=== PATIENT | male | born 1995 | race American Indian/Alaskan Native ===

== ENCOUNTER 2020-02-19 07:46 | Emergency (ER) | payer SELFPAY ==
--- NOTE | 2020-02-19 08:20 | Emergency Department Report ---
HPI - General Chief Complaint: Alcohol PUI?: No Time Seen by Provider: 02/19/20 08:04 - HPI HPI: Room 2 The patient is a 25-year-old male present with a chief complaint of altered mental status. Per EMS the patient was found lying on the ground in an apartment complex intoxicated by a bystander. The patient responds to tactile stimuli but does not answer questions. ED Past Medical Hx - Past Medical History Previous Medical History?: No - Surgical History Past Surgical History?: No - Family History Family history: no significant - Social History Smoking Status: Unknown if ever smoked ED Review of Systems ROS: Stated complaint: INTOXICATED/ETOH Other details as noted in HPI Comment: Unobtainable due to pts medical conditions Physical Exam - Physical Exam Vital Signs: Vital Signs 02/19/20 07:52 Temperature 97.4 F L Pulse Rate 78 Respiratory 16 Rate Blood Pressure 123/79 [Left] O2 Sat by Pulse 96 Oximetry Physical Exam: GENERAL: The patient is well-developed well-nourished male sleeping on stretcher. Patient has dirt and grass about the left side of his face HEENT: Normocephalic. Atraumatic. Pupils 2 mm bilaterally NECK: Supple. Trachea midline. No axial step-off CHEST/LUNGS: Clear to auscultation. There is no respiratory distress noted. HEART/CARDIOVASCULAR: Regular. There is no tachycardia. There is no gallop rub or murmur. ABDOMEN: Abdomen is soft, nontender. Patient has normal bowel sounds. There is no abdominal distention. SKIN: Linear abrasion/superficial laceration to the right back. There is no rash. There is no edema. There is no diaphoresis. NEURO: The patient is obtunded and responds to tactile stimuli but does not speak. The patient is not cooperative. MUSCULOSKELETAL: There is no evidence of acute injury. ED Course Vital Signs 02/19/20 07:52 Temperature 97.4 F L Pulse Rate 78 Respiratory 16 Rate Blood Pressure 123/79 [Left] O2 Sat by Pulse 96 Oximetry ED Medical Decision Making - Lab Data Result diagrams: 02/19/20 08:20 02/19/20 08:20 Laboratory Tests 02/19/20 02/19/20 02/19/20 08:20 08:20 08:20 WBC 7.8 RBC 4.66 Hgb 14.8 Hct 44.3 MCV 95 H MCH 32 MCHC 34 RDW 13.2 Plt Count 181 Lymph % (Auto) 15.9 [place] % (Auto) 6.2 Eos % (Auto) 0.4 Baso % (Auto) 0.4 Lymph # 1.2 [place] # 0.5 Eos # 0.0 Baso # 0.0 Seg Neutrophils % 77.1 H Seg Neutrophils # 6.0 Sodium 139 Potassium 4.0 Chloride 102.3 Carbon Dioxide 21 L Anion Gap 20 BUN 12 Creatinine 0.8 Estimated GFR > 60 BUN/Creatinine Ratio 15 Glucose 94 Calcium 9.1 Total Bilirubin 0.30 AST 45 H ALT 14 Alkaline Phosphatase 77 Total Creatine Kinase 1596 H CK-MB (CK-2) 9.9 H CK-MB (CK-2) Rel Index 0.6 Troponin T Total Protein 6.9 Albumin 4.7 Albumin/Globulin Ratio 2.1 Urine Opiates Screen Urine Methadone Screen Ur Barbiturates Screen Ur Phencyclidine Scrn Ur Amphetamines Screen U Benzodiazepines Scrn Urine Cocaine Screen U Marijuana (THC) Screen Drugs of Abuse Note Plasma/Serum Alcohol 02/19/20 02/19/20 02/19/20 08:20 08:20 13:06 WBC RBC Hgb Hct MCV MCH MCHC RDW Plt Count Lymph % (Auto) [place] % (Auto) Eos % (Auto) Baso % (Auto) Lymph # [place] # Eos # Baso # Seg Neutrophils % Seg Neutrophils # Sodium Potassium Chloride Carbon Dioxide Anion Gap BUN Creatinine Estimated GFR BUN/Creatinine Ratio Glucose Calcium Total Bilirubin AST ALT Alkaline Phosphatase Total Creatine Kinase CK-MB (CK-2) CK-MB (CK-2) Rel Index Troponin T < 0.010 Total Protein Albumin Albumin/Globulin Ratio Urine Opiates Screen Presumptive negative Urine Methadone Screen Presumptive negative Ur Barbiturates Screen Presumptive negative Ur Phencyclidine Scrn Presumptive negative Ur Amphetamines Screen Presumptive negative U Benzodiazepines Scrn Presumptive negative Urine Cocaine Screen Presumptive positive U Marijuana (THC) Screen Presumptive positive Drugs of Abuse Note Disclamer Plasma/Serum Alcohol 0.23 H - EKG Data -: EKG Interpreted by Me EKG shows normal: sinus rhythm Rate: normal - EKG Data When compared to previous EKG there are: previous EKG unavailable Interpretation: nonspecific ST-T wave francesca, LVH - Radiology Data Radiology results: report reviewed (CT head, CT cervical spine), image reviewed (CT head, CT cervical spine) Findings [facility] [address] [place] [id number] Cat Scan Report Signed Patient: AMBAR NICOLE MR#: [id number] 8 : 1995 Acct:[id number] Age/Sex: 25 / M ADM Date: 02/19/20 Loc: ED Attending Dr: Ordering Physician: NITHIN PIERCE MD Date of Service: 02/19/20 Procedure(s): CT head/brain wo con Accession Number(s): [id number] cc: NITHIN PIERCE MD Head CT without intravenous contrast INDICATION: Syncope COMPARISON: None FINDINGS: The ventricles are normal in size and position. No hemorrhage or extra-axial fluid collection. No edema or mass effect. No focal infarct seen. Portions of the sinuses visualized are clear. No skull fracture identified. IMPRESSION: Negative head CT Automated exposure control was utilized to diminish radiation dose Signer Name: Eh Badillo MD Signed: 02/19/2020 9:29 AM Workstation Name: [email or web address] Transcribed By: JM Dictated By: Eh Badillo MD Electronically Authenticated By: Eh Badillo MD Signed Date/Time: 02/19/20928 DD/ 2 TD/TT: Findings [facility] [address] [place] [id number] Cat Scan Report Signed Patient: AMBAR NICOLE MR#: [id number] 8 : 1995 Acct:[id number] Age/Sex: 25 / M ADM Date: 02/19/20 Loc: ED Attending Dr: Ordering Physician: NITHIN PIERCE MD Date of Service: 02/19/20 Procedure(s): CT cervical spine wo con Accession Number(s): [id number] cc: NITHIN PIERCE MD CT of the cervical spine INDICATION: Neck pain following injury today FINDINGS: The vertebral body heights and disc spaces are maintained. No fracture or subluxation. No spurring or facet arthropathy. No hematoma or soft tissue swelling. Odontoid and spinous processes are intact. No abnormality seen. IMPRESSION: Negative cervical spine CT. All CT scans at this location are performed using CT dose reduction for ALARA by means of automated exposure control Signer Name: Eh Badillo MD Signed: 02/19/2020 9:34 AM Workstation Name: [id number] Transcribed By: LUISA Dictated By: Eh Badillo MD Electronically Authenticated By: Eh Badillo MD Signed Date/Time: 02/19/2034 DD/ 8 TD/TT: Findings [facility] [address] [place] [address] XRay Report Signed Patient: AMBAR NICOLE MR#: [id number] 8 : 1995 Acct:[id number] Age/Sex: 25 / M ADM Date: 02/19/20 Loc: ED Attending Dr: Ordering Physician: NITHIN PIERCE MD Date of Service: 02/19/20 Procedure(s): XR ribs UNI w PA chest 3+V LT Accession Number(s): [id number] cc: NITHIN PIERCE MD Fluoro Time In Minutes: CHEST WITH LEFT RIBS 3 VIEWS 1325 INDICATION: Left rib pain. Found intoxicated on the ground, trauma to left chest COMPARISON: None mroeno ilable. FINDINGS: Lung [place] are clear. No pneumothorax is noted. No mediastinal widening is seen. No obvious pleural effusions are noted. No fractures are seen. Scoliosis is noted. Signer Name: Dharmesh Madera MD Signed: 02/19/2020 1:40 PM Workstation Name: [id number] Transcribed By: NICK Dictated By: Dharmesh Madera MD Electronically Authenticated By: Dharmesh Madera MD Signed Date/Time: 02/19/20 1340 DD/ 1336 TD/TT: - Medical Decision Making I discussed with the patient his elevated CK and the risk of renal failure with untreated rhabdomyolysis. Patient verbalized understanding but states he wishes to go home. Patient states he has already contacted his father to come pick him up from the hospital and he will leave AGAINST MEDICAL ADVICE. Patient alert and oriented x3 and ambulatory with normal gait. - Differential Diagnosis Intoxication, substance abuse, ICH, Critical care attestation.: If time is entered above; I have spent that time in minutes in the direct care of this critically ill patient, excluding procedure time. ED Disposition Clinical Impression: Alcohol intoxication, Rhabdomyolysis Disposition: DC-07 LEFT AGAINST MED ADVICE Is pt being admited?: No Does the pt Need Aspirin: No Condition: Undetermined Referrals: PRIMARY CARE, [Primary Care Provider] - 3-5 Days Time of Disposition: 14:53 (Patient eloped with father)
[2020-02-19] MEDS ORDERED: SODIUM CHLORIDE 0.9% 1000 ML 1,000 ML IV ONE ×2 (08:42→09:07)
[2020-02-19 08:44] LABS: Basophils % (Auto) 0.4 % (0.0-1.8); Eosinophils % (Auto) 0.4 % (0.0-4.3); Hematocrit 44.3 % (35.5-45.6); Hemoglobin 14.8 gm/dl (11.8-15.2); Lymphocytes # (Auto) 1.2 K/mm3 (1.2-5.4); Lymphocytes % (Auto) 15.9 % (13.4-35.0); Mean Corpuscular HGB Conc 34 % (32-34); Mean Corpuscular Volume 95 fl (84-94); Monocytes # (Auto) 0.5 K/mm3 (0.0-0.8); Monocytes % (Auto) 6.2 % (0.0-7.3); Platelet Count 181 K/mm3 (140-440); Red Blood Count 4.66 M/mm3 (3.65-5.03); Red Cell Distribution Width 13.2 % (13.2-15.2)
[2020-02-19 08:58] LABS: Creatine Kinase MB 9.9 ng/mL (0.0-4.0)
[2020-02-19 09:01] LABS: Alanine Aminotransferase 14 units/L (7-56); Albumin 4.7 g/dL (3.9-5); BUN/Creatinine Ratio 15; Blood Urea Nitrogen 12 mg/dL (9-20); Calcium 9.1 mg/dL (8.4-10.2); Hemolysis Index 8
[2020-02-19] MEDS ORDERED: MAGNESIUM SULFATE 2 GM/50 ML BAG IV ONE (09:19)
[2020-02-19] MEDS ORDERED: FOLIC ACID 1 MG, MULTIPLE VITAMIN INJ, ADULT 10 ML in SODIUM CHLORIDE 0.9% 1000 ML 1,00... IV ONE (09:19)
--- NOTE | 2020-02-19 09:33 | Cat Scan Report ---
Head CT without intravenous contrast INDICATION: Syncope COMPARISON: None FINDINGS: The ventricles are normal in size and position. No hemorrhage or extra-axial fluid collecti on. No edema or mass effect. No focal infarct seen. Portions of the sinuses visualized are clear. No skull fracture identified. IMPRESSION: Negative head CT Automated exposure control was utilized to diminish radiation dose Signer Name: Eh Badillo MD Signed: 02/19/2020 9:29 AM Workstation Name: [id number]
--- NOTE | 2020-02-19 09:39 | Cat Scan Report ---
CT of the cervical spine INDICATION: Neck pain following injury today FINDINGS: The vertebral body heights and disc spaces are maintained. No fracture or subluxation. No s purring or facet arthropathy. No hematoma or soft tissue swelling. Odontoid and spinous processes are intact. No abnormality seen. IMPRESSION: Negative cervical spine CT. All CT scans at this location are performed using CT dose reduction for ALARA by means of automated e xposure control Signer Name: Eh Badillo MD Signed: 02/19/2020 9:34 AM Workstation Name: [id number]
[2020-02-19] MEDS ORDERED: THIAMINE 100 MG TAB PO ONE (10:00)
[2020-02-19 10:10] VITALS: BP 115/74
[2020-02-19 13:32] LABS: Amphetamine Screen,Urine PRESUMPTIVE NEGATIVE; Benzodiazepines Screen,Urine PRESUMPTIVE NEGATIVE; Methadone Screen,Urine PRESUMPTIVE NEGATIVE; Opiate Screen,Urine PRESUMPTIVE NEGATIVE
--- NOTE | 2020-02-19 13:45 | XRay Report ---
CHEST WITH LEFT RIBS 3 VIEWS 1325 INDICATION: Left rib pain. Found intoxicated on the ground, trauma to left chest COMPARISON: None available. FINDINGS: Lung [place] are clear. No pneumothorax is noted. No mediastinal widening is seen. No obviou s pleural effusions are noted. No fractures are seen. Scoliosis is noted. Signer Name: Dharmesh Madera MD Signed: 02/19/2020 1:40 PM Workstation Name: [id number]
[2020-02-19 13:57] LABS: Cannabinoid Screen,Urine PRESUMPTIVE POSITIVE; Cocaine Screen,Urine PRESUMPTIVE POSITIVE
== END 2020-02-19 14:25 | disposition left against medical advice (07) ==
LOC: ED 07:46
DX: M62.82 Rhabdomyolysis (principal); F10.129 Alcohol abuse with intoxication, unspecified
CPT/HCPCS: 36415; 70450; 71101; 72125; 80053; 80307; 82550; 82553; 84484; 85025; 93005; 96361; 96365; 96367; 99285; J3411; J3475; J7030; 80320; G0480